=== PATIENT | male | born 2000 | race Hispanic/Latino ===

== ENCOUNTER 2024-01-12 17:03 | Emergency (ER) | payer MEDICAID, OTHER ==
[~2024-01-12] VITALS: Ht 172.7 cm; Wt 99.8 kg
[2024-01-12 21:09] LABS: SARS-CoV-2, RNA, NAAT NEGATIVE SARS CoV-2 (NEGATIVE)
[2024-01-12 21:12] VITALS: BP 121/58; PULSE 62; RESP 16; O2SAT 100
[2024-01-12 21:13] LABS: INFLUENZA TYPE A NEGATIVE FOR TYPE A (NEG)
[2024-01-12 21:14] LABS: INFLUENZA TYPE B NEGATIVE FOR TYPE B (NEG)
[2024-01-12] MEDS ORDERED: IBUP-2070 PO (21:27)
[2024-01-12] MEDS ORDERED: FLUT16H NASAL (21:27)
[2024-01-12] MEDS ORDERED: LORA10TA7 PO (21:27)
== END 2024-01-12 21:34 | disposition home or self-care (01) ==
LOC: EDH 17:03
DX: J00 Acute nasopharyngitis [common cold] (principal); Z20.822 Contact with and (suspected) exposure to COVID-19
CPT/HCPCS: 87635; 87804